=== PATIENT | male | born 1990 | race Caucasian/White ===

== ENCOUNTER → 2020-02-14 | Outpatient (CLI) | payer OTHER ==
[2020-02-14 11:46] LABS: HCT 44.6 % (39.0-53.0); HGB 14.9 gm/dL (13.0-17.5); MCH 31.6 pg (25.0-35.0); MCHC 33.5 g/dL (31.0-37.0); MCV 94.5 fL (80.0-100.0); Mean Platelet Volume 7.4; Platelet Count 263 k/uL (150-450); RBC 4.72 m/uL (4.30-5.90); WBC 5.5 k/uL (3.8-10.6)
[2020-02-14 16:48] LABS: Gliadin AB IgA, Deaminated NEGATIVE (NEGATIVE); Gliadin AB IgA, Unit 0.6 U/mL; Gliadin AB IgG, Deaminated NEGATIVE (NEGATIVE)
[2020-02-14 18:10] LABS: ALT 30 U/L (10-49); AST 23 U/L (14-35); African American GFR (CKD) 117.4 (60.0-200.0); Albumin/Globulin Ratio 2.04 (1.60-3.17); Alkaline Phosphatase 53 U/L (41-126); C Reactive Protein <0.4 mg/dL (0.0-0.8); Calcium 9.7 mg/dL (8.7-10.3); Carbon Dioxide 25.2 mmol/L (21.6-31.8); Chloride 104 mmol/L (96-109); Globulin 2.4 g/dL (1.6-3.3); Glucose 94 mg/dL (70-110); Non-African American GFR(CKD) 101.3 (60.0-200.0); Potassium 4.5 mmol/L (3.5-5.5); Sodium 138 mmol/L (135-145); Total Bilirubin 0.6 mg/dL (0.3-1.2); Total Protein 7.3 g/dL (6.2-8.2)
[2020-02-14 18:45] LABS: Erythrocyte Sedimentation Rate 5 mm/Hr (0-15)
== END | disposition home or self-care (01) ==
LOC: LABWHC1 10:29
PROVIDERS: ATTEND Nurse Practitioner
DX: R19.7 Diarrhea, unspecified (principal)
CPT/HCPCS: 36415; 80053; 83516; 83630; 83993; 85027; 85652; 86140; 87045; 87046; 87328; 87329

== ENCOUNTER 2020-02-15 08:38 | Day surgery (SDC) | payer OTHER ==
[2020-02-14 09:16] VITALS: BMI 25.1
[~2020-02-15 08:38] MED LIST: LACTATED RINGERS 1,000 ML IV SCH
[2020-02-15 09:07] VITALS: RESP 16; TEMP 97.8
[2020-02-15] MEDS ORDERED: LIDOCAINE 1% INJ 10MG/ML (20 ML MDV) ONE (09:26)
[2020-02-15] MEDS ORDERED: PROPOFOL 10 MG/ML 20 ML VIAL IV ONE (09:26)
--- NOTE | 2020-02-15 09:57 | P.PCN ---
Date of Procedure: 02/15/20 Description of Procedure: Brief history: Patient is a pleasant 29-year-old male scheduled for EGD and colonoscopy for evaluation of celiac disease and diarrhea. Reports frequent loose bowel movements occurring over the past year. No prior endoscopic evaluation. No family history of IBD or colon cancer. Procedure performed: Esophagogastroduodenoscopy with biopsy Colonoscopy with biopsy Estimated blood loss: Minimal. Preoperative diagnosis: Celiac disease, diarrhea [place] [facility] [place] After informed consent was obtained from the patient was brought into the endoscopy unit and IV sedation was administered by anesthesia under continuous monitoring. Initially upper endoscopy was done. The Olympus GF 190 video endoscope was inserted into the mouth and esophagus intubated without any difficulty and was gradually advanced into the stomach and duodenum and careful ly examined. The bulb and second part of the duodenum appeared normal, with biopsies taken to rule out celiac sprue. The scope was then withdrawn into the stomach adequately insufflated with air and upon careful examination the antrum and body, cardia and fundus appeared normal, except for some punctate areas of erythema suggestive of mild gastritis of the antrum and body with biopsies taken. The scope was then withdrawn into the esophagus. The GE junction was located at 43 cm to the incisors and biopsies. It appeared regular with no erythema erosions or ulcerations. Rest of the esophagus appeared normal. Patient tolerated the procedure well. At this time the patient continued to remain sedation. Initial digital rectal examination was normal. Olympus CF 190 video colonoscope was then inserted into the rectum and gradually advanced to the cecum without any difficulty. Careful examination was performed as the scope was gradually being withdrawn. The prep was excellent. The cecum, ascending colon, transverse colon, descending colon, sigmoid colon and rectum appeared normal, with biopsies taken of the right and left colon in the setting of diarrhea. The terminal ileum was also intubated and appeared normal with biopsies taken. Retroflexion was performed in the rectum and no lesions were noted, low-grade internal hemorrhoids seen. Patient tolerated the procedure well. Impression: 1. Mild gastritis antrum body, biopsied. Duodenal biopsies to rule out celiac sprue. GE junction biopsies. 2. Normal-appearing colon from rectum to cecum and-appearing terminal ileum with random biopsies taken of the terminal ileum, right and left colon in the setting of diarrhea. Low-grade internal hemorrhoids. Recommendations: Findings of this examination were discussed with the patient as well as his father. Okay to resume diet. Okay to resume medication. Await pathology from biopsies. Follow up with primary care physician as scheduled.
[2020-02-15 10:00] VITALS: PULSE 81
[2020-02-15 10:15] VITALS: BP 123/75
== END 2020-02-15 10:44 | disposition home or self-care (01) ==
LOC: ORWHC2ENDO 08:38
PROVIDERS: ATTEND Internal Medicine
DX: K29.50 Unspecified chronic gastritis without bleeding (principal); K90.0 Celiac disease; K64.8 Other hemorrhoids; E78.5 Hyperlipidemia, unspecified; E07.9 Disorder of thyroid, unspecified; Z88.1 Allergy status to other antibiotic agents; Z79.899 Other long term (current) drug therapy; Z98.890 Other specified postprocedural states; Z87.891 Personal history of nicotine dependence
CPT/HCPCS: 45380; 88305; 43239; J2001; J2704